=== PATIENT | female | born 1990 | race Caucasian/White ===

== ENCOUNTER 2024-06-15 06:30 | Emergency (ER) | payer BC ==
[~2024-06-15] VITALS: Ht 175.3 cm; Wt 83.1 kg
[2024-06-15 06:48] VITALS: PULSE 83; RESP 15; TEMP 97.6; O2SAT 100
[2024-06-15] MEDS ORDERED: ACETAMINOPHEN 325 MG TAB ONE (07:04)
[2024-06-15] MEDS: ACETAMINOPHEN 325 MG TAB PO ONE (07:20)
[2024-06-15] MEDS ORDERED: MACROBID 100 M100 MG PO (07:41)
[2024-06-15] MEDS ORDERED: VENTOLIN HFA18 GM INH (07:52)
== END 2024-06-15 08:17 | disposition home or self-care (01) ==
LOC: FSED 06:39
DX: O26.891 Other specified pregnancy related conditions, first trimester (principal); O23.41 Unspecified infection of urinary tract in pregnancy, first trimester; N39.0 Urinary tract infection, site not specified; R10.9 Unspecified abdominal pain; R05.9 Cough, unspecified; Z11.52 Encounter for screening for COVID-19
CPT/HCPCS: 0223U; 81003; 81025; 87086; 87400; 99284